=== PATIENT | female | born 1980 | race Caucasian/White ===

== ENCOUNTER 2021-12-28 10:27 | Emergency (ER) | payer BC, SELFPAY ==
[2021-12-28] MEDS ORDERED: Ibuprofen 200 MG TAB ONE (12:08)
== END 2021-12-28 12:35 | disposition home or self-care (01) ==
LOC: ERS 10:27 → EEVIPCON 10:27 → ERS 12:35
DX: S50.11XA Contusion of right forearm, initial encounter (principal); S50.12XA Contusion of left forearm, initial encounter; S80.12XA Contusion of left lower leg, initial encounter; S80.11XA Contusion of right lower leg, initial encounter; S09.90XA Unspecified injury of head, initial encounter; W25.XXXA Contact with sharp glass, initial encounter; Z79.899 Other long term (current) drug therapy